=== PATIENT | male | born 1990 | race American Indian/Alaskan Native ===

== ENCOUNTER 2017-02-12 10:48 | Emergency (ER) | payer SELFPAY ==
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
[2017-02-12] MEDS ORDERED: HYDROGEN PEROXIDE TP ONE (15:16)
[2017-02-12] MEDS ORDERED: TRIPLE ANTIBIOTIC TP ONE (15:16)
[2017-02-12 16:39] VITALS: BP 130/78
== END 2017-02-12 16:39 | disposition home or self-care (01) ==
LOC: ED 10:48
DX: S20.319A Abrasion of unspecified front wall of thorax, initial encounter (principal); R22.0 Localized swelling, mass and lump, head; X58.XXXA Exposure to other specified factors, initial encounter; Y93.9 Activity, unspecified; Y92.9 Unspecified place or not applicable; Y99.9 Unspecified external cause status
CPT/HCPCS: 99282; A6250